=== PATIENT | male | born 1945 ===

== ENCOUNTER 2022-02-08 10:59 | Day surgery (SDC) | payer MEDICARE ==
[~2022-02-08] VITALS: Ht 177.8 cm; Wt 73.0 kg
== END 2022-02-08 13:33 | disposition home or self-care (01) ==
LOC: ORSCSDS 10:59
PROVIDERS: Student in an Organized Health Care Education/Training Program
PROC: 0DBK8ZX Excision of Ascending Colon, Via Natural or Artificial Opening Endoscopic, Diagnostic (ICD-10-PCS; principal; 2022-02-08 12:15)
PROC: 0DBL8ZX Excision of Transverse Colon, Via Natural or Artificial Opening Endoscopic, Diagnostic (ICD-10-PCS; principal; 2022-02-08 12:15)
DX: Z12.11 Encounter for screening for malignant neoplasm of colon (principal); D12.2 Benign neoplasm of ascending colon; D12.3 Benign neoplasm of transverse colon; K57.30 Diverticulosis of large intestine without perforation or abscess without bleeding; K64.8 Other hemorrhoids; K62.89 Other specified diseases of anus and rectum
CPT/HCPCS: 88305; J2704; J7120

== ENCOUNTER 2024-12-16 10:56 | Day surgery (SDC) | payer MEDICARE ==
[~2024-12-16] VITALS: Ht 177.8 cm; Wt 74.9 kg
[~2024-12-16 10:56] MED LIST: Lactated Ringer's 1,000 ML IV ONE; propofoL 50 ML IV ONE
[2024-12-16] MEDS ORDERED: Lactated Ringer's 1,000 ML IV ONE (12:08)
[2024-12-16 16:36] VITALS: BP 110/63
== END 2024-12-16 13:47 | disposition home or self-care (01) ==
LOC: ORSCSDS 10:56
PROVIDERS: Specialist
PROC: 0DJD8ZZ Inspection of Lower Intestinal Tract, Via Natural or Artificial Opening Endoscopic (ICD-10-PCS; principal; 2024-12-16 12:30)
DX: Z12.11 Encounter for screening for malignant neoplasm of colon (principal); Z86.0101 Personal history of adenomatous and serrated colon polyps; K64.8 Other hemorrhoids; K57.30 Diverticulosis of large intestine without perforation or abscess without bleeding
CPT/HCPCS: J2704; J7120

== ENCOUNTER 2024-12-28 18:23 | Emergency (ER) | payer MEDICARE ==
[~2024-12-28] VITALS: Ht 180.3 cm; Wt 74.8 kg
[2024-12-28 20:27] LABS: BASOPHILS ABSOLUTE AUTO 0.03 K/mm3 (0.00-0.23); BASOPHILS PERCENT AUTO 0 % (0-2); EOSINOPHILS ABSOLUTE AUTO 0.14 K/mm3 (0.00-0.68); EOSINOPHILS PERCENT AUTO 2 % (0-6); Hemoglobin 15.4 g/dL (13.5-17.5); IMMATURE GRAN ABSOLUTE AUTO 0.02 K/mm3 (0.00-0.10); IMMATURE GRAN PERCENT AUTO 0 % (0-1); LYMPHOCYTES ABSOLUTE AUTO 1.36 K/mm3 (0.84-5.20); LYMPHOCYTES PERCENT AUTO 19 % (21-46); MONOCYTES ABSOLUTE AUTO 0.52 K/mm3 (0.16-1.47); MONOCYTES PERCENT AUTO 7 % (4-13); Mean Corpuscular HGB 29.8 pg (26.0-34.0); Mean Corpuscular HGB Conc 31.4 g/dL (31.5-36.5); Mean Corpuscular Volume 95 fL (80-100); NEUTROPHILS ABSOLUTE AUTO 5.18 K/mm3 (1.96-9.15); NEUTROPHILS PERCENT AUTO 71 % (41-73); Platelet Count 219 K/mm3 (150-400); RDW Coefficient Variation 13.1 % (11.7-14.2); RDW Standard Deviation 46.3 fL (35.1-46.3); Red Blood Cell Count 5.17 M/mm3 (4.30-5.90); White Blood Cell Count 7.25 K/mm3 (4.00-11.30)
[2024-12-28 20:50] LABS: Albumin, Blood 3.5 g/dL (3.4-5.0); Bilirubin, Total 1.3 mg/dL (0.1-1.0); Bun/Creatinine Ratio 23.1 (12.0-20.0); Calcium, Blood 8.9 mg/dL (8.5-10.1); Creatinine, Blood 0.95 mg/dL (0.60-1.20); Globulin, Blood 3.5 g/dL (2.2-4.0); Potassium, Blood 4.2 mmol/L (3.5-5.5)
[2024-12-29] MEDS ORDERED: Aspirin 81 MG Chew PO ONE (01:50)
[2024-12-29] MEDS ORDERED: ATOR80 PO (04:55)
[2024-12-29 06:30] VITALS: BP 141/99
== END 2024-12-29 06:54 | disposition home or self-care (01) ==
LOC: ER 18:23
PROVIDERS: Student in an Organized Health Care Education/Training Program
DX: G45.9 Transient cerebral ischemic attack, unspecified (principal); Z59.89 Other problems related to housing and economic circumstances
CPT/HCPCS: 70450; 70496; 70498; 80053; 85025; 93005; 93010; 99285-25; A9270; Q9967